=== PATIENT | female | born 1995 | race Caucasian/White ===

== ENCOUNTER 2018-01-16 00:47 | Emergency (ER) | payer OTHER ==
--- NOTE | 2018-01-16 01:14 | EDPHY ---
H & P Stated Complaint: fall off tailgate onto concrete, cut to right buttock, still bleeding Source: Patient Exam Limitations: No limitations - Personal History LMP (Females 10-55): Now Current Tetanus/Diphtheria Vaccine: Yes - Medical/Surgical History Hx Asthma: Yes Hx Chronic Respiratory Disease: No Hx Diabetes: No Hx Cardiac Disease: No Hx Renal Disease: No Hx Cirrhosis: No Hx Alcoholism: No Hx HIV/AIDS: No Hx Splenectomy or Spleen Trauma: No Other PMH: asthma - Social History Smoking Status: Never smoked Time Seen by Provider: 01/16/18 01:07 HPI/ROS: HPI: This is a 22-year-old female who presents with Chief Complaint: fall off tailgate onto concrete, cut to right buttock, still bleeding Location: Right buttock Quality: Laceration Duration: 1 hr prior to arrival Signs and Symptoms: + bleeding, no radiation, no numbness, no weakness, no tingling, no incontinence, no decreased range of motion, no swelling, no pain, no fever Timing: Acute Severity: Mild Context: Patient is here visiting her cousin from [place] for the weekend presents with accidentally falling off the tailgate onto concrete, she sustained of right buttock laceration. They washed with soap and water but continued to bleed. Denies LOC/head injury/neck pain/dizziness/nausea/vomiting/ amnesia. Tetanus is current. Modifying Factors: See above Comment: ROS: A comprehensive 10 system review of systems is otherwise negative aside from elements mentioned in the history of present illness. MEDICAL/SURGICAL/SOCIAL HISTORY: Medical history: Generally healthy. Does not take any regular medications. Surgical history: Denies Social history: Student at [employer]. Denies alcohol, drug, tobacco use. CONSTITUTIONAL: Polite and cooperative, young adult white female, awake and alert, no obvious distress HEENT: Atraumatic and normocephalic. NECK: supple, no midline tenderness, flexion 45 degrees, extension 45 degrees, right and left lateral flexion 45 degrees. No meningismus. Buttock: Right buttock shows 0.5 in, superficial, linear, simple laceration. EXTREMITIES: 2/2 pulses, strength 5/5, DIP/PIP/MCP flexion/extension intact with good light touch sensation. no deformities, no clubbing, no cyanosis or edema. NEUROLOGICAL: no focal neuro deficits. GCS 15. Light touch sensation intact. SKIN: Warm and dry, no erythema. no rash. Good capillary refill. (Gayla Arguello) Constitutional: Initial Vital Signs Temperature (C) 36.4 C 01/16/18 00:51 Heart Rate 87 01/16/18 00:51 Respiratory Rate 18 01/16/18 00:51 Blood Pressure 109/71 01/16/18 00:51 O2 Sat (%) 96 01/16/18 00:51 O2 Delivery Mode Room Air Allergies/Adverse Reactions: No Known Allergies Allergy (Unverified 01/16/18 00:50) Home Medications: Medication Instructions Recorded Albuterol 01/16/18 Fe 24 Tablet 01/16/18 Medical Decision Making Procedures: Procedure: Laceration repair. Verbal consent was obtained from the patient. The 1.5 in, linear, superficial laceration on the right buttock was anesthetized in the usual fashion for mL of 1% lidocaine with epinephrine. The wound was irrigated, draped and explored to its base with a gloved finger. There were no deep structures involved. No tendon injury was identified. The wound was repaired with #2, 4 0 Vicryl horizontal buried. Steri-Strips and Mastisol applied. The procedure was performed by myself. (Gayla Arguello) ED Course/Re-evaluation: Tetanus status is current. Local anesthesia provided; irrigated copiously Laceration closed with buried absorbable sutures. Steri-Strips applied. Verbal and written wound care instructions provided. No signs of neurovascular compromise/tenting of skin/compartment syndrome/ extremities and joints examined above and below area of concern and are neurovascularly intact. This patient was seen under the supervision of my secondary supervising physician. I evaluated care for this patient independently. Discussed this patient with Dr. Smalls. (Gayla Arguello) PHYSICIAN DOCUMENTATION: The patient was evaluated and managed by the [facility] Outpatient Facility Physical Therapist. My co- signature indicates that I have reviewed this chart and I agree with the findings and plan of care as documented. I am the secondary supervising physician. (Misty Smalls) Differential Diagnosis: Differential diagnosis includes but is not limited to contusion, abrasion, laceration. (Gayla Arguello) Departure - Departure Disposition: Home, Routine, Self-Care Clinical Impression: Laceration of right buttock without foreign body Qualifiers: Encounter type: initial encounter Qualified Code(s): S31.811A - Laceration without foreign body of right buttock, initial encounter Condition: Good Instructions: Laceration (ED), Care For Your Absorbable Stitches (ED), Steristrips (ED) Additional Instructions: Keep the dressing dry and in place for 48 hours. After 48 hours, you may wash the site daily with mild soap and water; then pat dry. Take Tylenol 650 mg every 4 hours and/or Ibuprofen 600 mg every 8 hours with food as needed for pain. Your laceration today was closed with absorbable sutures. These will slowly dissolve over time and do not need to be removed. Allow the Steri-Strips to fall off on their own. Referrals: CARLOS REID [Other] - As per Instructions
[2018-01-16 01:44] VITALS: BP 112/67
== END 2018-01-16 01:44 | disposition home or self-care (01) ==
PROC: 0HQ8XZZ Repair Buttock Skin, External Approach (ICD-10-PCS; principal; 2018-01-16)
DX: S31.811A Laceration without foreign body of right buttock, initial encounter (principal); W17.89XA Other fall from one level to another, initial encounter; Y99.9 Unspecified external cause status